=== PATIENT | male | born 2005 | race Caucasian/White ===

== ENCOUNTER 2024-02-02 07:24 | Emergency (ER) | payer SELFPAY ==
[2024-02-02 07:35] VITALS: BP 142/100; PULSE 84; TEMP 36.5; O2SAT 97; BMI 25.8
--- NOTE | 2024-02-02 07:50 | PC.PHAR ---
pt states he takes no prescription medications pt states just takes ibuprofen and tylenol prn
--- NOTE | 2024-02-02 07:55 | XR_ITS ---
WS: [id number] Exam: XR acute abdomen series 19524 Date/Time of Exam: 02/02/2024 7:57 AM Reason For Exam: n/v AP chest radiograph. No priors. Lungs are fully inflated and clear. Normal cardiomediastinal silhouette and regional bony elements. Flat and erect abdomen. No bowel obstruction or free air. Moderate amount of stool in the RIGHT colon . No sign of organ enlargement. Bony structures are unremarkable. IMPRESSION: 1. Negative chest. 2. No acute abdominal process.
[2024-02-02] MEDS: LORazepam 2 mg/mL INJ 10 mL MDV IVP (08:06)
[2024-02-02] MEDS: haloperidol inj 5 mg/mL INJ 1 mL 2.5 MG IVP (08:08)
[2024-02-02] MEDS: sodium chloride 0.9% 1,000 ML 999 ML IV (08:09)
[2024-02-02 08:12] LABS: Basophils # 0.1 10^3/uL (0.0-0.1); Eosinophils # 0.4 10^3/uL (0.0-0.8); Eosinophils % 4.1 %; Hematocrit 47.2 % (37-53); Lymphocytes # 4.2 10^3/uL (1.5-6.5); Lymphocytes % 41.4 %; Mean Corpuscular HGB Conc 35.6 g/dL (30-55); Mean Corpuscular Hemoglobin 30.7 pg (27-33); Mean Corpuscular Volume 86.1 fl (82-101); Mean Platelet Volume 8.7 fL (7.4-10.4); Monocytes # 1.1 10^3/uL (0.2-0.9); Monocytes % 10.8 %; Neutrophils # 4.29 10^3/uL (1.8-8.0); Neutrophils % 42.5 %; Nucleated Red Blood Cells % 0 %; Platelet Count 341 10^3/cmm (157-399); Red Blood Count 5.48 10^6/uL (3.85-5.65); Red Cell Distribution Width 11.7 % (12.1-15.1); White Blood Count 10.08 10^3/uL (4.5-13.0)
[2024-02-02 08:21] LABS: Alanine Aminotransferase 16 U/L (0-41); Albumin Level 4.6 g/dL (3.5-5.2); Alkaline Phosphatase 90 U/L (40-130); Anion Gap 17.8 (5-19); Aspartate Amino Transferase 14 U/L (0-40); Blood Urea Nitrogen 11 mg/dL (6-20); Calcium 9.5 mg/dL (8.5-10.5); Carbon Dioxide 24 mmol/L (22-29); Chloride 105 mmol/L (98-107); Creatinine Clr Calc Pharmacy 128.4933; Globulin 3.2 g/dL (1.3-4.6); Glomerular Filtration Rate 96.3 mL/min (90-130); Glucose 112 mg/dL (65-115); Osmolality Calculated 296 mOsm/kg (285-295); Potassium 3.8 mmol/L (3.5-5.1); Sodium 143 mmol/L (136-145); Total Bilirubin 0.4 mg/dL (0.15-1.2); Total Protein 7.8 g/dL (6.6-8.7)
--- NOTE | 2024-02-02 08:32 | ED_ITS ---
HPI - Abdominal Pain 2 General: Chief Complaint: Abdominal Pain Stated Complaint: abd pain, N/V Time Seen by Provider: 02/02/24 07:39 History of Present Illness: 18-year-old male presents emergency room complaining of abdominal pain and persistent nausea vomiting that began yesterday and worsened throughout the night denies hematochezia melena hematemesis cough cramps no dysuria urgency or frequency no hematuria. He has had watery and bilious vomit. He states he thinks he is constipated because he has not been able to have bowel movement for over 2 days. Associated Symptoms: Reports nausea and vomiting; Denies chills, dysuria, fever(s), hematochezia, hematemesis and melena Review of Systems 2 Const: Denies: fever(s) or chills Card: Denies: chest pain Resp: Denies: dyspnea GI: Reports: abdominal pain, nausea and vomiting; Denies: hematemesis, hematochezia or melena : Denies: dysuria, urinary frequency or urinary urgency Musc: Denies: neck pain or back pain Skin/Breast: Denies: rash Physical Exam 2 Narrative: EXAM NARRATIVE: Limited exam as patient was demanding to leave Const: ORIENTATION/CONSCIOUSNESS: Yes awake, Yes oriented to person, Yes oriented to place and Yes oriented to time HENMT: COMMON NORMALS: normocephalic, atraumatic and hearing grossly normal bilaterally HEAD & SCALP: normocephalic and atraumatic Resp: COMMON NORMALS: normal respiratory effort, No retractions and No use of accessory muscles GI: COMMON NORMALS: Soft to palpation and No hepatosplenomegaly present A USCULTATION: Yes normoactive bowel sounds PALPATION: Yes Soft to palpation, No Tenderness to palpation present (GI), No Guarding due to palpation present (GI) and Yes No hepatosplenomegaly present Neuro: SENSORIUM/ORIENTATION: Yes oriented to person, Yes oriented to place and Yes oriented to time Skin: COMMON NORMALS: no rashes or lesions noted GENERAL SKIN EXAM: no rashes or lesions noted Course 2 Vital Signs: Vital signs: Vital Signs Temperature 97.7 F 02/02/24 07:35 Pulse Rate 84 02/02/24 07:35 Blood Pressure 142/100 02/02/24 07:35 Pulse Oximetry 97 02/02/24 07:35 Oxygen Delivery Me thod Room Air 02/02/24 07:35 MDM - Abdominal Pain Medical Decision Making Initial labs medications given based on the nurse report and triage notes. Patient had IV fluids ordered removed his IVs several times continue clear abdominal discomfort he did cease his vomiting with the Haldol and lorazepam. Flat and upright of the abdomen shows constipation abdominal exam did not show any significant tenderness no guarding or rebound bowel sounds are positive. Patient was demanding to leave at this point. I had intended to get a CT to ensure other pathologies however he did not wish to stay. He is discharged home encouraged to use laxatives to relieve his constipation and can follow-up with his primary care doctor or return to the emergency room if he has persistent symptoms. Differential Diagnosis Likely abdominal pain Medical Records I reviewed the patient's medical records. Lab Data I reviewed the patient's lab results. 02/02/24 07:43 02/02/24 07:43 Labs/Radiology: Laboratory Results WBC 10.08 10^3/uL (4.5-13.0) 02/02/24 07:43 RBC 5.48 10^6/uL (3.85-5.65) 02/02/24 07:43 Hgb 16.80 g/dL (13.2-15.6) H 02/02/24 07:43 Hct 47.2 % (37-53) 02/02/24 07:43 MCV 86.1 fl (82-101) 02/02/24 07:43 MCH 30.7 pg (27-33) 02/02/24 07:43 MCHC 35.6 g/dL (30-55) 02/02/24 07:43 RDW 11.7 % (12.1-15.1) L 02/02/24 07:43 Plt Count 341 10^3/cmm (157-399) 02/02/24 07:43 MPV 8.7 fL (7.4-10.4) 02/02/24 07:43 Neut % (Auto) 42.5 % 02/02/24 07:43 Lymph % (Auto) 41.4 % 02/02/24 07:43 [place] % (Auto) 10.8 % 02/02/24 07:43 Eos % (Auto) 4.1 % 02/02/24 07:43 Baso % (Auto) 1.0 % 02/02/24 07:43 Neut # (Auto) 4.29 10^3/uL (1.8-8.0) 02/02/24 07:43 Lymph # (Auto) 4.2 10^3/uL (1.5-6.5) 02/02/24 07:43 Stafford # (Auto) 1.1 10^3/uL (0.2-0.9) H 02/02/24 07:43 Eos # (Auto) 0.4 10^3/uL (0.0-0.8) 02/02/24 07:43 Baso # (Auto) 0.1 10^3/uL (0.0-0.1) 02/02/24 07:43 Nucleated RBC % (auto) 0 % 02/02/24 07:43 Nucleated RBCs # 0.0 /100WBC 02/02/24 07:43 Sodium 143 mmol/L (136-145) 02/02/24 07:43 Potassium 3.8 mmol/L (3.5-5.1) 02/02/24 07:43 Chloride 105 mmol/L (98-107) 02/02/24 07:43 Carbon Dioxide 24 mmol/L (22-29) 02/02/24 07:43 Anion Gap 17.8 (5-19) 02/02/24 07:43 BUN 11 mg/dL (6-20) 02/02/24 07:43 Creatinine 1.0 mg/dL (0.7-1.2) 02/02/24 07:43 GFR Calculation 96.3 mL/min (90-130) 02/02/24 07:43 Glucose 112 mg/dL (65-115) 02/02/24 07:43 Calculated Osmolality 296 mOsm/kg (285-295) H 02/02/24 07:43 Calcium 9.5 mg/dL (8.5-10.5) 02/02/24 07:43 Total Bilirubin 0.4 mg/dL (0.15-1.2) 02/02/24 07:43 AST 14 U/L (0-40) 02/02/24 07:43 ALT 16 U/L (0-41) 02/02/24 07:43 Alkaline Phosphatase 90 U/L (40-130) 02/02/24 07:43 Total Protein 7.8 g/dL (6.6-8.7) 02/02/24 07:43 Albumin 4.6 g/dL (3.5-5.2) 02/02/24 07:43 Globulin 3.2 g/dL (1.3-4.6) 02/02/24 07:43 All radiology interpretation(s) finalized by discharge Discharge Plan Discharge Patient Disposition: Home Clinical Impression: Abdominal pain, Constipation Condition: Stable Prescriptions: No Action Tylenol Ex Str Rapid Release 500 mg Tablet 1,000 mg PO Q6H PRN (Reason: Pain) ibuprofen 200 mg Tablet 600 mg PO Q6H PRN (Reason: Pain) Discharge Orders: Discharge ED (Routine); Ordered 02/02/24 Ordered By: Charles Castañeda Patient Instructions: Abdominal Pain (ED), Opioid Safety, Pain Management Activity Restrictions/Additional Instructions: Thank you for choosing [facility] for your healthcare needs today. Please realize this is an emergency room and that we are providing you with a medical screening exam and this may not be complete and all inclusive of all the testing and or work up that you may need to determine your ailment or severity of your illness. It is very important that you follow up as instructed or that you return to the Emergency Department should you have concerns or if your condition changes or worsens in any way. You are seen in the emergency room with a complaint of abdominal pain. Initial labs and medications were given the laboratory work is unremarkable we recommended further testing however you chose to leave prior to its completion. If you change your mind you are welcome to return to complete the evaluation. You can use laxatives to relieve the constipation. Coding Level of Care Code ED Ichthyology Teacher for Matthew Barrsoo
== END 2024-02-02 08:41 | disposition home or self-care (01) ==
PROVIDERS: Emergency Provider Family Medicine
DX: K59.00 Constipation, unspecified (principal); R10.9 Unspecified abdominal pain
CPT/HCPCS: 74022; 80053; 85025; 96374; 96375; 99284; J1630; J2060; J7030